=== PATIENT | male | born 1970 ===

== ENCOUNTER 2018-04-07 08:34 | Day surgery (SDC) | payer OTHER ==
[2018-04-07] VITALS (12 sets, daily range): BP systolic 104–200; BP diastolic 65–123
[~2018-04-07] VITALS: Ht 188 cm; Wt 83.9 kg
--- NOTE | 2018-04-07 06:55 | Pre-Procedure Note/Attestation ---
Pre-Procedure Note/Attestation Complete Prior to Procedure Planned Procedure: right Procedure Narrative: rt knee scope, medial meniscectomy Indications for Procedure Pre-Operative Diagnosis: rt knee medial meniscus tear Attestation I attest that I discussed the nature of the procedure; its benefits; risks and complications; and alternatives (and the risks and benefits of such alternatives ), prior to the procedure, with the patient (or the patient's legal ambulatory service representative). I attest that, if there was a reasonable possibility of needing a blood transfusion, the patient (or the patient's legal ambulatory service representative) was given the [facility] standardized written summary, pursuant to the Angel [place] Blood Safety Act ([place] Health and Safety Code # 1645, as amended). I attest that I re-evaluated the patient just prior to the surgery and that there has been no change in the patient's H&P, except as documented below: none Rigoberto Ponce MD Apr 07, 2018 06:55
[~2018-04-07 08:34] MED LIST: AXIRON30 MG/1.5 TD; CIALIS20 MG ORAL; DEXILANT60 MG ORAL; Descovy PO; LIPITOR10 MG ORAL; OXANDROLONE10 MG PO; PREZCOBIX 8001 EACH PO; SEROSTIM6 M1 SQ; VALACYCLOVIR500 MG ORAL; ceFAZolin sod 1 GM in D5W 110 ML IVP ONE; celeBREX 200mg Cap **SURGERY PATIENTS ONLY ORAL ONE; oxyCONTIN 20mg tab ORAL ONE
[2018-04-07] MEDS ORDERED: NS Irrig 4000ml IRRIG ONE (08:35)
[2018-04-07] MEDS ORDERED: oxyCONTIN 20mg tab ORAL ONE (10:13)
[2018-04-07] MEDS ORDERED: celeBREX 200mg Cap **SURGERY PATIENTS ONLY ORAL ONE (10:13)
[2018-04-07] MEDS ORDERED: Ropivacaine 5mg/ml Vial 30ml INJ ONE (11:19)
[2018-04-07] MEDS ORDERED: fentaNYL 100 mcg/2 mL IV ONE (11:20)
[2018-04-07] MEDS ORDERED: Midazolam 2mg/2ml Inj ONE (11:20)
[2018-04-07] MEDS ORDERED: Lidocaine 1% MPF 10mg/ml 5ml ONE (11:20)
[2018-04-07] MEDS ORDERED: Propofol 200mg/20ml IV ONE (11:20)
--- NOTE | 2018-04-07 11:33 | Immediate Post-Op Evaluation ---
Immediate Post-Op Evalulation Immediate Post-Op Evalulation Procedure: Right knee arthroscopy, medial meniscectomy Date of Evaluation: Apr 07, 2018 Time of Evaluation: 13:09 IV Fluids: 1L Blood Products: 0 Estimated Blood Loss: min Urinary Output: 0 Blood Pressure Systolic: 143 Blood Pressure Diastolic: 92 Pulse Rate: 106 Respiratory Rate: 20 O2 Sat by Pulse Oximetry: 95 Temperature (Fahrenheit): 97.9 - . Pain Score (1-10): 0 Nausea: No Vomiting: No Complications 0 Patient Status: awake, reacts, patent, none Hydration Status: adequate Drug: Ancef 2g Given Within 1 Hr of Incision: Yes JANES PERSAUD M.D. Apr 07, 2018 11:33
--- NOTE | 2018-04-07 11:33 | Anethesia Preoperative Eval ---
Anesthesia Pre-op PMH/ROS General Date of Evaluation: Apr 07, 2018 Anesthesiologist: Killian ASA Score: ASA 2 Mallampati Score Class I : Soft palate, uvula, fauces, pillars visible Class II: Soft palate, uvula, fauces visible Class III: Soft palate, base of uvula visible Class IV: Only hard plate visible Mallampati Classification: Class II Surgeon: Rosario Diagnosis: Right knee torn meniscus Surgical Procedure: Right knee arthroscopy, medial meniscectomy Anesthesia History: none Family History: no anesthesia problems Allergies: Coded Allergies: No Known Allergies (Unverified , 04/03/18) Medications: see eMAR Past Medical History Cardiovascular: Reports: other - HLD; Denies: HTN, CAD, DE, valve dz, arrhythmia Pulmonary: Denies: asthma, COPD, SAMANTHA, other Gastrointestinal/Genitourinary: Reports: GERD - severe, with esophageal and vocal cord irritation; patient at his baseline, other - gastritis; Denies: CRI, ESRD Neurologic/Psychiatric: Reports: depression/anxiety; Denies: dementia, CVA, TIA, other Endocrine: Denies: DM, hypothyroidism, steroids, other HEENT: Denies: cataract (L), cataract (R), glaucoma, [place] (L), [place] (R), other Hematology/Immune: Reports: other - HIV, hepatitis B; Denies: anemia, DVT, bleeding disorder Musculoskeletal/Integumentary: Denies: OA, RA, DJD, DDD, edema, other Anesthesia Pre-op Phys. Exam Physician Exam Last Vital Signs Date Time Temp Pulse Resp B/P (MAP) Pulse Ox O2 Delivery O2 Flow Rate FiO2 04/07/18 09:51 97.2 89 18 129/80 96 Room Air 97.2 Constitutional: NAD Neurologic: other - hoarse voice, patient states its his baseline Cardiovascular: RRR Respiratory: CTA Airway Exam Mallampati Score: Class II MO: full ROM: full Teeth: intact Anesthesia Pre-op A/P Labs see chart Studies Pre-op Studies: EKG - sr Risk Assessment & Plan Assessment: ASA II Plan: GA Status Change Before Surgery: No Pre-Antibiotics Drug: Ancef 2g Given Within 1 Hr of Incision: Yes JANES PERASUD M.D. Apr 07, 2018 11:33
--- NOTE | 2018-04-07 11:34 | 48 Hour Post Anesthesia Eval ---
Post Anesthesia Evaluation Procedure: Right knee arthroscopy, medial meniscectomy Date of Evaluation: Apr 07, 2018 Time of Evaluation: 14:40 Blood Pressure Systolic: 126 0: 71 Pulse Rate: 101 Respiratory Rate: 18 Temperature (Fahrenheit): 97.6 O2 Sat by Pulse Oximetry: 96 Airway: patent Nausea: No Vomiting: No Pain Intensity: 0 Hydration Status: adequate Cardiopulmonary Status: at baseline Mental Status/LOC: patient returned to baseline Post-Anesthesia Complications: 0 Follow-up care needed: ready to discharge JANES PERSAUD M.D. Apr 07, 2018 11:34
[2018-04-07] MEDS ORDERED: Tylenol #3 tab (300mg/30mg) ORAL PRN (11:45)
[2018-04-07] MEDS ORDERED: Norco 5mg/325mg tab ORAL PRN (11:45)
[2018-04-07] MEDS ORDERED: D5 1/2NS 1,000 ML IV SCH (11:45)
--- NOTE | 2018-04-07 12:40 | Brief Operative Note ---
Immediate Post Operative Note Operative Note Chief Complaint: rt knee pain Pre-op Diagnosis: rt knee medial meniscus tear Procedure: rt knee scope, medial meniscectomy Post-op Diagnosis: same as pre-op Findings: consistent w/pre-op dx studies Surgeon: md nova Racket Stringer: fay paz Anesthesiologist: md rachell Anesthesia: general Specimen: yes Complications: none Condition: stable Fluids: ns Estimated Blood Loss: minimal Drains: none Implant(s) used?: No Emily Paz Apr 07, 2018 12:40
[2018-04-07] MEDS ORDERED: Flumazenil 0.1mg/ml 5ml Inj IV ONE (13:13)
[2018-04-07] MEDS ORDERED: LR 1000ml 1,000 ML IVLG SCH (13:29)
[2018-04-07] MEDS ORDERED: Flumazenil 0.1mg/ml 5ml Inj IV SCH (13:30)
[2018-04-07] MEDS ORDERED: fentaNYL 100 mcg/2 mL IV PRN (13:30)
[2018-04-07] MEDS ORDERED: Hydromorphone 0.5mg/0.5ml inj IVP PRN (13:30)
[2018-04-07] MEDS ORDERED: Labetalol 5mg/ml 20ml vial IV PRN (13:30)
[2018-04-07] MEDS ORDERED: DiphenhydrAMINE 50mg/ml Inj IVP PRN (13:30)
--- NOTE | 2018-04-07 19:30 | Operative Note - Dictated ---
SURGERY DATE: 04/07/2018 PREOPERATIVE DIAGNOSIS: Right knee bucket-handle tear of the medial meniscus. POSTOPERATIVE DIAGNOSES: 1. 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 2. Right knee large displaced bucket-handle tear of the medial meniscus involving posterior horn and body of the medial meniscus involving 50% of medial meniscus in the red-white zone. 3. Right knee grade 3 chondromalacia of the medial femoral condyle as it was rubbing against the bucket-handle tear of medial meniscus. PROCEDURE: 1. Right knee arthroscopy and extensive intra-articular shaving. 2. Right knee patellofemoral chondroplasty as well as medial femoral chondroplasty. 3. Right knee partial medial meniscectomy involving 50% of posterior horn and body of the medial meniscus. SURGEON: Rigoberto Ponce M.D. WEB MARKETING STRATEGIST: Emily Byrne PA-C. Raw Shellfish Preparer was present during the actual operative portion of the case and was important and essential part of the operation. During the operation, the surgery assistant held and operated the arthroscopic camera for visualization, assisted by manipulating the leg to help with visualization, and helped with essential parts of the repair process as necessary such as operating surgical instruments under surgeon supervision, suture management, and wound closures. ANESTHESIOLOGIST: Dr. Daily. ANESTHESIA: LMA anesthesia. TOURNIQUET TIME: 25 minutes. ESTIMATED BLOOD LOSS: Minimal. COMPLICATIONS: None. SURGICAL INDICATION: The patient is a 48-year-old male who sustained the above injury to his knee. The patient was treated non-operative initially, but this did not alleviate the patients symptoms. Therefore, after discussing all non-surgical and surgical options, and discussing all foreseeable risk and benefits of surgery, the patient opted for surgical treatment as described above. PATIENT POSITIONING: The patient was brought to the operating room table and placed supine. All pressure points were well padded. General Anesthesia was induced and a well padded tourniquet was placed on the thigh. The lateral post was placed and positioned to allow for opening of the medial compartment of the knee without placing pressure over the fibular head. Patients entire leg was prepped and draped in the usual sterile fashion. Time out was performed and preop antibiotic was given and after exsanguinating the lower extremity, the tourniquet was inflated to 275 mmHg. EXAMINATION OF THE KNEE UNDER ANESTHESIA: Before prepping and draping the knee and while the patient was relaxed under general anesthesia, the knee was examined for ROM, and anterior and posterior, medial and lateral, posterolateral, and posteromedial instability. Pivot shift testing was performed. There was no evidence of loss of motion or instability and the pivot shift testing was negative. PORTAL PLACEMENT: The lateral portal was placed with the knee flexed to 90 degrees at the level of inferior border of the patella in line with the lateral border of the patella. A 0.5-cm skin incision was made with an #11 blade, and using a blunt obturator, the capsule was gently penetrated. Sterile saline solution was then infused inside the knee with the aid of a pump set at 35 mmHg. Under direct visualization, placement of the medial portal was preliminarily judged using a spinal needle, and it was subsequently established using the same technique as the lateral portal. Care was given not to injure the cutaneous branches of the medial saphenous nerve or the subcutaneous veins. DIAGNOSTIC ARTHROSCOPY: The suprapatellar patellar pouch was visualized. There was no evidence of scar tissue or loose fragments. The medial and lateral patellar facets and trochlear groove articular cartilage was visualized. There was chondral damage in the central trochlear groove measuring 1 x 1 cm. There were some unstable chondral flaps that were there. This was grade 4 chondromalacia. The medial plica shelf and the corresponding medial femoral condyle articular cartilage were visualized. There was no significantly thickening of the medial plica shelf and there were no kissing? lesion over the medial femoral condyle. The lateral gutter and the posterolateral corner of the knee were visualized. There were no loose bodies, and the popliteus tendon and other structures of the posterolateral corner of the knee were intact intra-articularly. At this point, the knee was placed in the figure of four position and the lateral compartment was entered. The lateral femoral condyle, lateral tibial plateau, and the anterior, body, and the posterior horn of the lateral meniscus were visualized and probed. The articular surfaces were intact and devoid of articular cartilage damage. The lateral meniscus was completely intact both on its undersurface and on the top. The knee was then placed at 90 degree and the ACL and PCL were visualized and probed. The ACL was completely intact on visualization and probing, and it had excellent tension. The PCL was completely intact on visualization and probing and it had excellent tension. The medial compartment was then entered and the medial femoral condyle, medial tibial plateau, and the anterior, body, and the posterior horn of the medial meniscus were visualized and probed. There was chondral damage over the medial femoral condyle and there was presence of the bucket-handle tear of the medial meniscus. This chondral damage was as a result of displacement of the medial meniscus that was rubbing against the cartilage. The medial meniscus showed a large bucket-handle tear in the red-white zone involving posterior horn and body of the medial meniscus. This involved 50% of the medial meniscus. There was some rim of medial meniscus remaining, however. The medial gutter was visualized. There was no evidence of defect or loose fragments. The scope was then brought back to the patella femoral compartment. OPERATIVE ARTHROSCOPY: At this point, all loose debris and fragments were removed with the use of suction motorized shaver. Specific attention was given to assure all visible loose fragments were irrigated out of the knee joint with pump inflow and cannula outflow system. The frayed articular cartilage of the undersurface of the patella and the trochlear groove were debrided using a motorized shaver. Suction was used to pull in the loose fragments and flaps of the cartilage and to minimize damage to the intact and well-attached portion of the cartilage. This allowed for a smooth surface for the articular cartilage gliding. The bucket-handle tear of the medial meniscus was reduced and there was no red-white zone. Pursuant to my discussion prior to the surgery with the patient, the patient had indicated that he did not want to have a medial meniscus repair and he was interested to remove the bucket-handle tear. He fully understood that there was increased chance of arthritis and painful condition with a meniscectomy, however, he provided consent for meniscectomy and did not provide consent for meniscus repair. Therefore, a meniscectomy was performed. At this point, attention was given to the medial meniscus. Using combination of baskets and debbie, the torn portion of the medial meniscus was removed. Attention was given to remove all displaced and unstable portion of the medial meniscus while maintaining as much of the functional portion of the meniscus as possible. Approximately, 50% of the posterior horn and body of the medial meniscus was removed in this fashion. The transition between the meniscectomy portion and intact portion of the meniscus was smoothed out with combination of small baskets and debbie. Excellent transition zone was obtained in this fashion. Care was given to the area of cartilage damage in the medial compartment. The frayed and loose fragments of articular cartilage were debrided using a motorized shaver. Suction was used to pull in the loose fragments and flaps of the cartilage and to minimize damage to the intact and well attached portion of the cartilage. This allowed for smooth surfaces for the articular cartilage. CONDITION AT DISCHARGE FROM OPERATING ROOM: The knee was irrigated with copious amount of normal saline at the end of the procedure. The scope was removed and the water was drained. The skin edges were re-approximated and sterile dressing was applied. All lap count and instrument counts were correct. The patient tolerated the procedure well without complications and was taken to the recovery room in stable conditions. Rigoberto Ponce M.D. DR: Shasta JOB#: [id number] CC:
[2018-04-08 08:23] VITALS: BP 126/71
== END 2018-04-07 14:40 | disposition home or self-care (01) ==
LOC: SUR 08:34
DX: S83.211A Bucket-handle tear of medial meniscus, current injury, right knee, initial encounter (principal); M24.10 Other articular cartilage disorders, unspecified site; F41.9 Anxiety disorder, unspecified; E78.5 Hyperlipidemia, unspecified; K21.9 Gastro-esophageal reflux disease without esophagitis; F32.9 Major depressive disorder, single episode, unspecified; X58.XXXA Exposure to other specified factors, initial encounter; Y93.9 Activity, unspecified; Y92.9 Unspecified place or not applicable
CPT/HCPCS: 29877; 29881; J0690; J2250; J2704; J2795; J3010; 94003; 94150